=== PATIENT | male | born 1980 | race African-American/Black ===

== ENCOUNTER 2020-11-02 11:38 | Outpatient (REF) | payer OTHER, SELFPAY | END 2020-11-02 11:39 | disposition home or self-care (01) | LOC: HO.LAB 11:38 | PROVIDERS: Visit Provider Internal Medicine | DX: Z20.828 Contact with and (suspected) exposure to other viral communicable diseases (principal) | CPT/HCPCS: C9803; U0003 ==

== ENCOUNTER 2021-03-27 17:30 | Emergency (ER) | payer OTHER, SELFPAY ==
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
[2021-03-27 19:33] VITALS: BP 152/88; PULSE 81; RESP 18; TEMP 36.6; O2SAT 100; BMI 30.3
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
== END 2021-03-27 20:55 | disposition home or self-care (01) ==
PROVIDERS: Emergency Provider Emergency Medicine Emergency Medical Services; PCP Nurse Practitioner Family
DX: M25.512 Pain in left shoulder (principal); M25.511 Pain in right shoulder; S43.102A Unspecified dislocation of left acromioclavicular joint, initial encounter; V43.52XA Car driver injured in collision with other type car in traffic accident, initial encounter; Y93.89 Activity, other specified; Y92.414 Local residential or business street as the place of occurrence of the external cause; Y99.9 Unspecified external cause status
CPT/HCPCS: 73030; 99283

== ENCOUNTER 2021-04-13 12:45 | Emergency (ER) | payer OTHER, SELFPAY | END 2021-04-13 14:02 | disposition left against medical advice (07) | PROVIDERS: Emergency Provider Emergency Medicine; PCP Nurse Practitioner Family | DX: S49.91XA Unspecified injury of right shoulder and upper arm, initial encounter (principal); V49.9XXA Car occupant (driver) (passenger) injured in unspecified traffic accident, initial encounter; Y93.9 Activity, unspecified; Y92.9 Unspecified place or not applicable; Y99.9 Unspecified external cause status ==

== ENCOUNTER 2021-04-14 13:10 | Emergency (ER) | payer OTHER, SELFPAY ==
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
[2021-04-14 13:14] VITALS: BP 140/86; PULSE 74; RESP 16; TEMP 36.9; O2SAT 100; BMI 31.6
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
== END 2021-04-14 16:29 | disposition home or self-care (01) ==
PROVIDERS: Emergency Provider Emergency Medicine Emergency Medical Services; PCP Nurse Practitioner Family
DX: S46.911A Strain of unspecified muscle, fascia and tendon at shoulder and upper arm level, right arm, initial encounter (principal); S76.012A Strain of muscle, fascia and tendon of left hip, initial encounter; V48.5XXA Car driver injured in noncollision transport accident in traffic accident, initial encounter; Y93.9 Activity, unspecified; Y92.414 Local residential or business street as the place of occurrence of the external cause; Y99.9 Unspecified external cause status
CPT/HCPCS: 73030; 73502; 99283

== ENCOUNTER 2022-02-08 20:38 | Emergency (ER) | payer OTHER, SELFPAY | END 2022-02-08 22:19 | disposition left against medical advice (07) | PROVIDERS: Emergency Provider Emergency Medicine; PCP Internal Medicine | DX: R10.9 Unspecified abdominal pain (principal) ==

== ENCOUNTER 2025-08-18 09:37 | Outpatient (AMB) | payer OTHER, SELFPAY ==
--- NOTE | 2025-08-18 09:48 | MHC.PC.OV ---
Vital Signs 08/18/25 09:55 Height 6 ft 0.05 in Weight 235 lb 6 oz BMI 31.9 BP 114/59 L Blood Pressure Location Rt brachial Position Sitting Respiration 16 Pulse 71 Pulse Source Pulse Oximeter Temp 97.8 F Temp Source Temporal Artery Scan Pulse Oximetry (%) 95 Oxygen Delivery Method Room Air Intake Visit Reasons: Establish Care Perioperative Tech Required: No Accompanied by: Self / Same As Patient Allergies bee pollen (BEE STINGS) Allergy (Severe, Verified 08/18/25 10:09) ANAPHYLAXIS Medication List - Last Reconciled 08/18/25 by Mary Andujar PA-C No Known Home Meds Tobacco use date assessed: 08/18/25 Dental Screening Dental Screen Date: 08/18/25 Did you have a dental visit in the last 12 months?: No Did you have a dental problem in the last 6 months where you did not have access to dental care?: Yes Was dental information given to patient?: No HPI Establish Care HPI Details The patient is a 45-year-old male presenting for a new patient appointment, annual physical exam and evaluation of chronic gastrointestinal symptoms. The patient reports experiencing abdominal cramping, bloating, and a burning sensation behind the belly button for over 12 years. He describes the pain as sharp and constant, rated at 10 out of 10 in severity, with no specific exacerbating factors identified. Previous evaluations included endoscopy and colonoscopy, with a diagnosis of irritable bowel syndrome and negative H. pylori tests. The patient also reports chronic constipation, with stools often appearing as small, pencil-thin, and occasionally accompanied by black pepper-like flakes. He has tried dietary modifications, including eliminating dairy and gassy foods, without significant improvement. He experiences frequent urges to defecate with minimal output and reports a mucous-like discharge during bowel movements. Additionally, the patient experiences symptoms consistent with gastroesophageal reflux disease, including a sensation of food being stuck and acid reflux. He reports temporary relief of symptoms with burping or passing gas. A thyroid nodule was palpated during the physical examination, and the patient has a history of a slight heart murmur noted since childhood. 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 - Job Satisfaction: Reports dissatisfaction with job and feeling underpaid. [facility] Medical History (Updated 08/18/25 @ 16:35 by Mary Andujar PA-C) Preventative health care Heart murmur GERD (gastroesophageal reflux disease) IBS (irritable bowel syndrome) Thyroid nodule Constipation Abnormal bowel habits Abdominal pain Annual physical exam Surgical History H/O shoulder surgery Family History Father No problems noted. Mother No problems noted. Social History Housing: Apartment Patient Tobacco Use Status: Never used Tobacco service: No Current occupational status: employed Cognitive needs: No Hearing needs: No Vision needs: Yes (rx glasses) Questionnaire PHQ-9 Over the last 2 weeks, how often have you been bothered by any of the following problems? 1. Little interest or pleasure in doing things: not at all 2. Feeling down, depressed, or hopeless: not at all 3. Trouble falling or staying asleep, or sleeping too much: not at all 4. Feeling tired or having little energy: not at all 5. Poor appetite or overeating: not at all 6. Feeling bad about yourself - or that you are a failure or have let yourself or your family down: not at all 7. Trouble concentrating on things, such as reading the newspaper or watching television: not at all 8. Moving or speaking so slowly that other people could have noticed. Or the opposite - being so fidgety or restless that you have been moving around a lot more than usual: not at all 9. Thoughts that you would be better off or of hurting yourself in some way: not at all Total score: 0 Depression Screening Interpretation: Negative Depression Screening Done: Yes 32028 - PHQ-9 Billing: Yes Source: Developed by Drs. Giovanny Hastings, Anne Blackwood, Agus Barry and colleagues, with an educational janee from [employer]. Thrive Questionnaire Date Thrive assessed: 08/18/25 I am a: Patient What is your living situation today?: I have a steady place to live Within the past 12 months, did the food you bought not last and you didn't have the money to get more?: Often true Within the past 12 months, did you worry whether your food would run out before you got money to buy more?: Never true Do you have trouble paying for medicines?: No Do you have trouble getting transportation to medical appointments?: No Do you have trouble paying your heating and electricity bill?: Yes Do you have trouble taking care of your child, family member or friend?: No Do you have trouble with day-to-day activities such as bathing, preparing meals, shopping, managing finances, etc.?: Yes Are you currently unemployed and looking for a job?: No Are you interested in more education?: No Please select the resources that you would like help with: None THRIVE Score: 2 AUDIT C Alcohol Use Questionnaire (AUDIT-C) 1. How often do you have a drink containing alcohol?: 2-3 times a week 2. How many drinks containing alcohol do you have on a typical day when you are drinking?: 1 or 2 Total Score: 3 Score Reviewed/Action Taken: No ELIZABETH-7 AMB Questionnaire ELIZABETH-7 Date ELIZABETH - 7 assessed: 08/18/25 Feeling nervous, anxious, or on edge: 0 = Not at all Not being able to stop or control worryin = Not at all Worrying too much about different things: 0 = Not at all Trouble relaxin = Not at all Being so restless that it is hard to sit still: 0 = Not at all Becoming easily annoyed or irritable: 0 = Not at all Feeling afraid as if something awful might happen: 0 = Not at all Total ELIZABETH-7 score (0-4 normal; 5-9 mild; 10-14 moderate; 15-21 severe): 0 Source: Developed by Drs. Giovanny Hastings, Anne Blackwood, Agus Barry and colleagues, with an educational janee from [employer]. ELIZABETH-7 Assessment Billing ELIZABETH-7 Assessment Tool: ELIZABETH-7 Assessment 05327 Review of Systems Const Details: - Gastrointestinal: Reports chronic abdominal cramping, bloating, burning sensation, constipation, and mucous-like discharge with bowel movements. - Cardiovascular: Denies chest pain, reports slight heart murmur since childhood. - Respiratory: Denies dyspnea, reports occasional shortness of breath when lying down. - Endocrine: Reports palpable thyroid nodule. - Genitourinary: Reports symptoms affecting urination and sexual function. All systems reviewed & are unremarkable except as noted in HPI and below Physical exam (Primary Care) Vital Signs: Last Vital Signs Temp 97.8 F 08/18/25 09:55 Pulse 71 08/18/25 09:55 Resp 16 08/18/25 09:55 BP 114/59 L 08/18/25 09:55 Pulse Ox 95 08/18/25 09:55 Oxygen Delivery Method Room Air 08/18/25 09:55 Care Plan Goal for BP management: <140/90 at goal BMI result Body Mass Index 31.9 BMI Assessment/Plan discussion: High BMI High, discussed plan: lifestyle, weight reduction, dietary, physical activity, alcohol moderation and other Tobacco/Smoking Status: Tobacco use Status Tobacco use date assessed 08/18/25 08/18/25 09:52 Patient Tobacco Use Status Never used Tobacco 08/18/25 09:52 PHQ-9: PHQ-9 Score PHQ-9: Total score 0 08/18/25 10:09 Depression Screening Interpretation: Negative Thrive Assessment: Date of Thrive Assessment Date Thrive assessed 08/18/25 08/18/25 09:52 Const Other: Appearance: Alert. Oriented X3. No acute distress. Head: Normal external exam. Normocephalic. Atraumatic. Eyes: Pupils are equal, round, and reactive to light. Extraocular movements intact. Conjunctiva and sclera normal. Eyelids normal. Ears: External auditory canal normal. Tympanic membranes normal. Throat: Pharynx normal. Uvula midline. Moist mucous membranes. Neck: Normal inspection. Neck supple. Full range of motion. No adenopathy. Possible thyroid nodule. No meningeal signs. No neck mass noted. Cardiovascular: Normal heart rate and rhythm. Heart sound normal. Slight murmur noted. Pulses normal throughout. Respiratory: No respiratory distress. Painless inspiration. Breath sounds normal. No wheezes/rales/rhonchi noted. Chest nontender. No accessory muscle usage noted or decreased air movement noted. Abdomen: Soft and mild tenderness diffusely which is chronic for the patient there is no point tenderness. Bowel sounds normal in all 4 quadrants. No distention noted. No organomegaly noted. No visible injury noted. Back: No costovertebral angle tenderness. Full range of motion noted. Skin: Skin warm and dry. Normal skin color. Normal skin turgor. No rashes/lesions/lacerations noted. Extremities: No lower extremity edema. Extremities exhibit normal range of motion. Extremities nontender. Neuro: Oriented X 3. No motor deficit. No sensory deficit. Reflexes normal. Coding Level of Care Code New Pt Level 4 (77887) New Pt Prev Care 40-64y(44522) Diagnoses Annual physical exam Z00.00 IBS (irritable bowel syndrome) K58.9 Constipation K59.00 GERD (gastroesophageal reflux disease) K21.9 Thyroid nodule E04.1 Heart murmur R01.1 Preventative health care Z00.00 Additional Codes ELIZABETH-7 Assessment Billing - ELIZABETH-7 Assessment Tool: ELIZABETH-7 Assessment 21133 ([id number]) PHQ-9 - 43627 - PHQ-9 Billing: Yes ([id number]) Time Spent (min) 60 Assessment & Plan Assessment & Plan (1) Annual physical exam: Code(s): Z00.00 - Encounter for general adult medical examination without abnormal findings Category: Medical (2) IBS (irritable bowel syndrome): Code(s): K58.9 - Irritable bowel syndrome, unspecified Category: Medical Plan: The patient will be referred to gastroenterology for further evaluation, including potential repeat endoscopy and colonoscopy. A stool sample will be collected to test for H. pylori and other potential causes. The patient is advised to try Colace and MiraLAX for constipation management. (3) Constipation: Code(s): K59.00 - Constipation, unspecified Category: Medical Plan: The patient is prescribed omeprazole 20 mg twice daily to manage symptoms of GERD. The patient is instructed to complete a stool sample for H. pylori before starting omeprazole. (4) GERD (gastroesophageal reflux disease): Code(s): K21.9 - Gastro-esophageal reflux disease without esophagitis Category: Medical Plan: The patient is prescribed omeprazole 20 mg twice daily to manage symptoms of GERD. The patient is instructed to complete a stool sample for H. pylori before starting omeprazole. (5) Thyroid nodule: Code(s): E04.1 - Nontoxic single thyroid nodule Category: Medical Plan: A thyroid ultrasound is recommended to evaluate the nodule for size and characteristics. (6) Heart murmur: Code(s): R01.1 - Cardiac murmur, unspecified Category: Medical Plan: An echocardiogram is suggested to assess the heart murmur and evaluate cardiac function. (7) Preventative health care: Code(s): Z00.00 - Encounter for general adult medical examination without abnormal findings Category: Medical Plan: A colonoscopy is recommended as part of routine screening for colon cancer. Plan Plan Patient was informed and verbally consented to the use of an ambient scribe for clinic note documentation during this visit. 1. Irritable Bowel Syndrome The patient will be referred to gastroenterology for further evaluation, including potential repeat endoscopy and colonoscopy. A stool sample will be collected to test for H. pylori and other potential causes. The patient is advised to try Colace and MiraLAX for constipation management. 2. Constipation The patient is advised to take Colace and MiraLAX twice daily for two weeks to alleviate constipation. If ineffective, Serafin may be considered for bowel clearance. 3. Gastroesophageal Reflux Disease (Gerd) The patient is prescribed omeprazole 20 mg twice daily to manage symptoms of GERD. The patient is instructed to complete a stool sample for H. pylori before starting omeprazole. 4. Thyroid Nodule A thyroid ultrasound is recommended to evaluate the nodule for size and characteristics. 5. Heart Murmur An echocardiogram is suggested to assess the heart murmur and evaluate cardiac function. 6. Preventative Care: Colon Cancer Screening With Colonoscopy A colonoscopy is recommended as part of routine screening for colon cancer. During the visit, I discussed the patient's chronic gastrointestinal symptoms and the need for further evaluation by gastroenterology, including potential repeat endoscopy and colonoscopy. We reviewed the plan to manage constipation with Colace and MiraLAX, and the option of using Serafin if needed. I explained the use of omeprazole for GERD management and the importance of completing a stool sample for H. pylori before starting the medication. We also discussed the thyroid nodule and the recommendation for a thyroid ultrasound to assess its characteristics. The patient was informed about the slight heart murmur and the suggestion of an echocardiogram for further evaluation. Preventative care measures, including a colonoscopy for colon cancer screening, were also addressed. Orders: Orders C Reactive Protein Today Z00.00 - Encounter for general adult medical examination without abnormal findings Complete Blood Count Auto Diff Today Z00.00 - Encounter for general adult medical examination without abnormal findings Comprehensive [place]. Panel Fast Today Z00.00 - Encounter for general adult medical examination without abnormal findings Liver Panel Today Z00.00 - Encounter for general adult medical examination without abnormal findings Magnesium Today Z00.00 - Encounter for general adult medical examination without abnormal findings Vitamin D 25-OH Total Today Z00.00 - Encounter for general adult medical examination without abnormal findings UA CC w/rflx Micro + Cult Today Z00.00 - Encounter for general adult medical examination without abnormal findings PSA,Total (Free>4and<10) Today Z00.00 - Encounter for general adult medical examination without abnormal findings H pylori Ag Stool Today R10.9 - Unspecified abdominal pain Transglutaminase IgA 1 Day R14.0 - Abdominal distension (gaseous) Transglutaminase Ab IgG 1 Day R14.0 - Abdominal distension (gaseous) DHEA Sulfate Today Z00.00 - Encounter for general adult medical examination without abnormal findings Dihydrotestosterone Today Z00.00 - Encounter for general adult medical examination without abnormal findings Giardia Ag Stool EIA Today K59.00 - Constipation, unspecified, R10.9 - Unspecified abdominal pain, R19.8 - Other specified symptoms and signs involving the digestive system and abdomen Hemoglobin A1c Today Z00.00 - Encounter for general adult medical examination without abnormal findings Lipid Panel Today Z00.00 - Encounter for general adult medical examination without abnormal findings Vitamin B12 and Folate Today Z00.00 - Encounter for general adult medical examination without abnormal findings TSH reflex Free T4 Today Z00.00 - Encounter for general adult medical examination without abnormal findings Celiac Disease Panel Today R10.9 - Unspecified abdominal pain CT abdomen pelvis w IV con Today K59.00 - Constipation, unspecified, R10.9 - Unspecified abdominal pain, R19.8 - Other specified symptoms and signs involving the digestive system and abdomen Testosterone, Free/Total Today Z00.00 - Encounter for general adult medical examination without abnormal findings US thyroid Today E04.1 - Nontoxic single thyroid nodule Leukocytes Stool Qualitative Today K59.00 - Constipation, unspecified, R10.9 - Unspecified abdominal pain, R19.8 - Other specified symptoms and signs involving the digestive system and abdomen GI Panel Today K59.00 - Constipation, unspecified, R10.9 - Unspecified abdominal pain, R19.8 - Other specified symptoms and signs involving the digestive system and abdomen Referrals Gastroenterology Referral K59.00 - Constipation, unspecified, R10.9 - Unspecified abdominal pain, R19.8 - Other specified symptoms and signs involving the digestive system and abdomen, Z12.11 - Encounter for screening for malignant neoplasm of colon Medications: New docusate sodium 100 mg (2 x 50 mg) PO BID 56 caps 0RF 14 days polyethylene glycol 3350 (Miralax) 17 grams PO BID 30 ea 0RF 14 days peg 3350-electrolytes 236-22.74-6.74 -5.86 gram (Golytely) until fecal effluent is clear 240 mL PO Q10M 4,000 mL 0RF omeprazole 20 mg PO BID 180 caps 3RF 90 days sildenafil (Viagra) administer 30 minutes to 4 hours before activity 50 mg PO DAILY PRN 20 tabs 3RF sexual activity Discontinued naproxen Discontinued Reason: Patient no longer taking 500 mg PO BID PRN 10 tabs 0RF pain oxycodone Discontinued Reason: Patient no longer taking 5 mg PO BID PRN 10 tabs 0RF pain acetaminophen (Tylenol Extra Strength) Discontinued Reason: Patient no longer taking 1,000 mg (2 x 500 mg) PO QID PRN 14 tabs 0RF fever or pain cyclobenzaprine Discontinued Reason: Patient no longer taking 10 mg PO Q8H 10 tabs 0RF Muscle spasm acetaminophen (Tylenol Extra Strength) Discontinued Reason: Patient no longer taking 1,000 mg (2 x 500 mg) PO QID PRN 14 tabs 0RF fever or pain naproxen Discontinued Reason: Patient no longer taking 500 mg PO BID PRN 10 tabs 0RF pain oxycodone Discontinued Reason: Patient no longer taking 5 mg PO BID PRN 10 tabs 0RF pain Patient Instructions: - Schedule and complete blood work and stool sample before starting omeprazole. - Take Colace and MiraLAX twice daily for two weeks to manage constipation. - Follow up with gastroenterology for further evaluation of gastrointestinal symptoms. - Undergo thyroid ultrasound as scheduled to evaluate the nodule. - Prepare for and complete the colonoscopy for colon cancer screening. - Monitor symptoms and seek medical attention if conditions worsen.
[2025-08-18 09:55] VITALS: BP 114/59; PULSE 71; RESP 16; TEMP 36.6; O2SAT 95; BMI 31.9
== END 2025-08-18 10:34 | disposition home or self-care (01) ==
LOC: HO.HMCSH 09:37
PROVIDERS: PCP Physician Assistant Medical; Visit Provider Physician Assistant Medical
DX: Z00.00 Encounter for general adult medical examination without abnormal findings (principal); K58.9 Irritable bowel syndrome, unspecified; K59.00 Constipation, unspecified; K21.9 Gastro-esophageal reflux disease without esophagitis; E04.1 Nontoxic single thyroid nodule; R01.1 Cardiac murmur, unspecified

== ENCOUNTER → 2025-08-18 09:37 | Outpatient (BNVA) | payer OTHER, SELFPAY | PROVIDERS: PCP Physician Assistant Medical; Visit Provider Physician Assistant Medical | DX: Z00.00 Encounter for general adult medical examination without abnormal findings (principal); I10 Essential (primary) hypertension; R10.9 Unspecified abdominal pain; R14.0 Abdominal distension (gaseous); K59.09 Other constipation; K21.9 Gastro-esophageal reflux disease without esophagitis; E04.1 Nontoxic single thyroid nodule; K58.9 Irritable bowel syndrome, unspecified; K59.00 Constipation, unspecified; R01.1 Cardiac murmur, unspecified | CPT/HCPCS: 96127; 99386 ==